=== PATIENT | female | born 1940 | race Caucasian/White ===

== ENCOUNTER → 2023-09-02 15:28 | Outpatient (REF) | payer MEDICARE, BC, SELFPAY | LOC: RCS 15:28 | PROVIDERS: ATTENDING PHYSICIAN Nuclear Medicine Nuclear Cardiology; FAMILY PHYSICIAN Family Medicine | DX: I10 Essential (primary) hypertension (principal) | CPT/HCPCS: 93306 ==

== ENCOUNTER 2023-11-01 15:10 | Emergency (ER) | payer MEDICARE, BC, SELFPAY ==
[2023-11-01 15:12] VITALS: BP 174/102
--- NOTE | 2023-11-01 15:51 | ED.GENMED ---
History of Present Illness
General
Chief Complaint: Musculo-Skeletal Complaint
Source: patient
Exam Limitations: none
Time Seen by Provider: 11/01/23 15:44
Nursing documentation reviewed up to this point in time: agreed with
History of Present Illness
History of Present Illness:
83 y/o female with a PMH of Parkinson's with balance issues presents to the emergency department today with concerns of left lower rib pain. Patient states that 2 days ago, she was dancing. Patient states that she has balance issues with her
Parkinson's and when she was dancing fast, she felt unsteady on her feet and when her partner grabbed her waist to support her, she felt sharp pain and felt a crunch. Patient said that her dance partner felt discomfort as well. Patient did not
fall, patient not hit her head, she denies any neck pain. She denies any other injuries. She does note pain with inspiration but denies any shortness of breath or other chest pain other than the rib pain. Patient Nuys any dizziness or
lightheadedness. Patient states that over the past few days, the pain has been getting worse. Patient has tried Tylenol without relief. Patient cannot take NSAIDs.
Past History
Past History
ED Past Medical History: GERD and HTN
ED Past Surgical History: Orthopedic and Urological
Social History
Tobacco: Non-smoker
Alcohol: None
Living: alone
Employment: Retired
Review of Systems
Review of Systems
All Other Systems: ROS reviewed and negative except as documented in HPI and ROS
Phy Exam
Physical Exam
Physical Exam:
General: Patient is well appearing and in no acute distress; non-toxic
Skin: Warm and dry, no rashes or lesions
Head: Normocephalic, atraumatic
Eyes: Sclera non-icteric. EOMs intact.
Cardiac: Regular rate. Tenderness palpation of the left lower chest wall, no palpable crepitus, no overlying ecchymosis.
Pulm: Normal respiratory effort, no wheezes, rales, rhonchi bilaterally
Neuro: CN II-XII intact, no focal neurologic deficits.
Psychiatric: Appropriate mood and affect.
Course
Orders/Labs/Results
Orders:
Orders
11/01/23 15:16
CR Ribs-left 3 Vw W/pa Chest Urgent
Comment:
Reason For Exam: pain
11/01/23 16:11
Oxycodone [Roxicodone] 5 mg PO NOW STA
11/01/23 16:13
Incentive Spirometry [Rx Incentive Spirometry] [RESP] Urgent
Frequency: q1h while awake
Vital Signs
Initial and Last Documented VS:
Initial Vital Signs
Temp Pulse Resp BP Pulse Ox
98.0 F 83 18 174/102 96
11/01/23 15:12 11/01/23 15:12 11/01/23 15:12 11/01/23 15:12 11/01/23 15:12
Last Documented Vital Signs
Temp Pulse Resp BP Pulse Ox
98.0 F 81 18 158/84 96
11/01/23 15:12 11/01/23 16:45 11/01/23 15:12 11/01/23 16:45 11/01/23 16:45
MDM/Problems Addressed
Differential Diagnosis Includes:
Differentials include rib fracture, rib contusion, costochondritis
MDM/Problems Addressed:
83-year-old female history of Parkinson's with balance issues presents emergency department today following her partner grabbing her waist. Patient has left lower chest wall pain. Patient states that she felt a crunch at the time. Patient states
that since injury pains been getting worse. She did had a x-ray here that showed a left acute nondisplaced fracture of the left lateral fifth rib but no evidence of pneumothorax or hemothorax. Discussed finding with patient, patient states that
she is not feeling relief with Tylenol and she has tolerated oxycodone in the past. Did send a few tablets of oxycodone to her pharmacy, discussed opioid-induced constipation. Encourage MiraLAX. Encouraged incentive spirometry. Return
precautions discussed. Patient stable for discharge
Chronic conditions affecting care:
Parkinson's, hypertension, GERD,
Acute Exacerbation and/or Progression of Chronic Illness:
n/a
*Pulse Oximetry
Patient hypoxic: no
*Critical Care Note
Total Time (30-74mins, 75-104mins- exclusive of procedures): Not Applicable
Data Reviewed
Review of Other/Old Records Reveals: Records (Reviewed ER physician documentation from 02/19/16)
Prescriptions/Medications Considered But Not Given:
n/a
Further Testing Considered But Not Given:
n/a
Patient Management
Escalation/DeEscalation of care consider admission/obs:
Admit not indicated, patient stable for discharge
ED Attending Note
-
Portions of this chart may have been created with voice recognition software.� Occasional wrong word or��sound alike� substitutions may have occurred due to the inherent limitations of voice recognition software.
Discharge Plan
Departure
Patient Disposition: Home (Routine Discharge)
Date of Disposition: 11/01/23
Time of Disposition: 16:28
Patient with high blood pressure during this ER visit?: Yes
Condition: Good
Discharge Problem:
Left rib fracture
Instructions: How to Use an Incentive Spirometer, Taking Opioids Safely, BLOOD PRESSURE, Rib Fracture
Prescriptions:
New
oxycodone 5 mg tablet
5 mg PO Q6H PRN (Reason: Pain) Qty: 8 0RF
No Action
amlodipine 5 MG tablet
10 mg PO DAILY
omeprazole 20 MG capsule,delayed release(DR/EC)
20 mg PO DAILY PRN (Reason: gerd)
acetaminophen [Tylenol Extra Strength] 500 MG tablet
1,000 mg PO Q4H PRN (Reason: pain)
cholecalciferol (vitamin D3) 2,000 UNITS tablet
2,000 unit PO DAILY
multivitamin with folic acid [Tab-A-Jagdish] 1 TABLET tablet
1 tab PO DAILY
pramipexole 1 mg Tablet
1 mg PO HS
carbidopa-levodopa 50-200 mg Tablet Extended Release
1 tab PO TID
turmeric
500 mg PO DAILY
albuterol sulfate 2.5 mg /3 mL (0.083 %) Solution For Nebulization
2.5 mg inhalation R Q4HPRN PRN (Reason: SOB, COUGH, WHEEZE) 7 Days 0RF
albuterol sulfate 2.5 mg /3 mL (0.083 %) Solution For Nebulization
2.5 mg inhalation R TID 7 Days Qty: 63 0RF
ciprofloxacin HCl 250 mg Tablet
250 mg PO BID Qty: 14 0RF
bisacodyl 10 mg Suppository
10 mg [place] DAILYPRN PRN (Reason: constipation) Qty: 7 0RF
docusate sodium 100 mg Capsule
100 mg PO BID Qty: 60 0RF
oxycodone 5 mg Tablet
2.5 mg PO Q4HPRN PRN (Reason: moderate pain) Qty: 10 0RF
Referrals:
Aamir Kaur MD [Active] - Call in 1-3 days for appt
Activity Restrictions/Additional Instructions:
For pain, you can take Tylenol. You can take two 325 mg tablets every 4-6 hours as needed for pain. Should you have breakthrough pain, you can take 1 oxycodone tablet. You can take 1 tablet every 6 hours as needed for pain. This has been sent to
your pharmacy. You had 1 dose today in the emergency department. The next time you can take this is in 6 hours.
Please use your incentive spirometer multiple times an hour while at home for the next week. This will heal on its own. Should you have persistent pain, trouble breathing, shortness of breath, pain in your chest, lightheadedness, dizziness, please
follow-up with your primary care provider, return emergency department. Please follow-up with orthopedics.
Interventions
Interventions:
*Risk Screen - Suicide Last Done: 11/01/23 15:12
*General Assessment Last Done: 11/01/23 15:12
*Neglect/Abuse Screening Last Done: 11/01/23 15:57
*ED COVID-19 Vaccine History Last Done: 11/01/23 15:12
*Nursing Disposition Last Done: 11/01/23 16:45
ED-Musculoskeletal Assessment Last Done: 11/01/23 15:57
Discharge Date and Time
Discharge Date/Time: 11/01/23 16:46
Print Language: TURKISH
[2023-11-01] MEDS: ROXICODONE 5 MG PO (16:18)
[2023-11-01 16:45] VITALS: BP 158/84
== END 2023-11-01 16:46 | disposition home or self-care (01) ==
LOC: EMR 15:10
PROVIDERS: EMERGENCY PHYSICIAN Student in an Organized Health Care Education/Training Program; FAMILY PHYSICIAN Family Medicine
DX: S22.32XA Fracture of one rib, left side, initial encounter for closed fracture (principal); X50.1XXA Overexertion from prolonged static or awkward postures, initial encounter; G20.A1 Parkinson's disease without dyskinesia, without mention of fluctuations
CPT/HCPCS: 99283; 71101

== ENCOUNTER 2023-11-14 13:32 | Emergency (ER) | payer MEDICARE, BC, SELFPAY ==
[2023-11-14 13:33] VITALS: BP 174/107
--- NOTE | 2023-11-14 14:26 | ED.GENMED ---
History of Present Illness
General
Chief Complaint: Musculo-Skeletal Complaint
Source: patient
Time Seen by Provider: 11/14/23 13:58
History of Present Illness
History of Present Illness:
83-year-old female presenting to the emergency department for evaluation after she believes she may have aggravated or reinjured her left lateral rib area when she opened up a shower door causing it to hit into the left lateral rib where she had a
recently fractured fifth rib. Patient states that the pain was somewhat improved over the last few days but that since she hit the area again this morning she has now had more pain. Denies any difficulty breathing but does state it hurts more when
she takes a deep breath. No other injuries or concerns.
Past History
Past History
ED Past Medical History: GERD and HTN
ED Past Surgical History: Orthopedic and Urological
Social History
Tobacco: Non-smoker
Alcohol: None
Drug: None
Personal: Single
Living: alone
Employment: Retired
Review of Systems
Review of Systems
All Other Systems: ROS reviewed and negative except as documented in HPI and ROS
Phy Exam
Physical Exam
Physical Exam:
GENERAL: Alert , in no apparent distress at rest but uncomfortable with movement
EYE: clear conjunctiva b/l
HEAD: NCAT
ENT: mmm.
CARDIAC: Regular rate and rhythm .
LUNGS: Clear breath sounds bilaterally, no acute respiratory distress, no wheezes/rales/rhonchi
CHEST WALL: mild tenderness inferolaterally to left breast around the 5th/6th rib
ABDOMEN: Soft, without focal tenderness, no r/g, no cvat
NEUROLOGICAL: Alert and oriented
SKIN: Warm and dry, skin intact.
MUSCULOSKELETAL: well perfused.
PSYCH: Normal and appropriate interaction.
Scores
Heart Failure Risk
Heart Failure Risk Score: Not Applicable
Heart Score for Chest Pain Patients
STEMI patient?: Not applicable
Withdrawal Assessment of Alcohol
Withdrawal Assessment Completed?: Not applicable
Course
Orders/Labs/Results
Orders:
Orders
11/14/23 14:03
CR Ribs-left 3 Vw W/pa Chest Urgent
Comment:
Reason For Exam: pain, known recent rib fx
11/14/23 14:30
Oxycodone [Roxicodone] 5 mg PO NOW STA
Vital Signs
Initial and Last Documented VS:
Initial Vital Signs
Temp Pulse Resp BP Pulse Ox
97.7 F 98 16 174/107 96
11/14/23 13:33 11/14/23 13:33 11/14/23 13:33 11/14/23 13:33 11/14/23 13:33
Last Documented Vital Signs
Temp Pulse Resp BP Pulse Ox
97.7 F 71 16 157/96 95
11/14/23 13:33 11/14/23 15:28 11/14/23 15:28 11/14/23 15:28 11/14/23 15:28
MDM/Problems Addressed
Differential Diagnosis Includes:
re-aggravation of rib fracture, contusion, ptx
MDM/Problems Addressed:
83-year-old female presenting back to the emergency department for evaluation after she reinjured her left lateral thorax, recently here about 2 weeks ago for a left fifth rib fracture. Patient in no acute distress but does appear uncomfortable
with movement. Patient requesting repeat imaging, will obtain rib series. Patient did take some Tylenol prior to arrival with no relief. Patient notes that she had relief with oxycodone when she took this at home so we will give her a dose of
this as well.
*Radiology
Radiology exam reviewed: radiology read reviewed
*Pulse Oximetry
Patient hypoxic: no
*Critical Care Note
Total Time (30-74mins, 75-104mins- exclusive of procedures): Not Applicable
Data Reviewed
Review of Other/Old Records Reveals: Radiology Studies
Patient Management
Escalation/DeEscalation of care consider admission/obs:
No new fracture or complication on patient's x-ray. Will provide patient with short-term oxycodone to use as needed. Follow-up with primary care provider. Otherwise stable for discharge home
ED Attending Note
-
Portions of this chart may have been created with voice recognition software.� Occasional wrong word or��sound alike� substitutions may have occurred due to the inherent limitations of voice recognition software.
Discharge Plan
Departure
Patient Disposition: Home (Routine Discharge)
Date of Disposition: 11/14/23
Time of Disposition: 15:22
Patient with high blood pressure during this ER visit?: No
Discharge Problem:
Left rib fracture
Instructions: Rib Fracture
Prescriptions:
New
oxycodone 5 mg tablet
5 mg PO BID PRN (Reason: Pain) Qty: 5 0RF
No Action
amlodipine 5 MG tablet
10 mg PO DAILY
omeprazole 20 MG capsule,delayed release(DR/EC)
20 mg PO DAILY PRN (Reason: gerd)
acetaminophen [Tylenol Extra Strength] 500 MG tablet
1,000 mg PO Q4H PRN (Reason: pain)
cholecalciferol (vitamin D3) 2,000 UNITS tablet
2,000 unit PO DAILY
multivitamin with folic acid [Tab-A-Jagdish] 1 TABLET tablet
1 tab PO DAILY
pramipexole 1 mg Tablet
1 mg PO HS
carbidopa-levodopa 50-200 mg Tablet Extended Release
1 tab PO TID
turmeric
500 mg PO DAILY
albuterol sulfate 2.5 mg /3 mL (0.083 %) Solution For Nebulization
2.5 mg inhalation R Q4HPRN PRN (Reason: SOB, COUGH, WHEEZE) 7 Days 0RF
albuterol sulfate 2.5 mg /3 mL (0.083 %) Solution For Nebulization
2.5 mg inhalation R TID 7 Days Qty: 63 0RF
ciprofloxacin HCl 250 mg Tablet
250 mg PO BID Qty: 14 0RF
bisacodyl 10 mg Suppository
10 mg [place] DAILYPRN PRN (Reason: constipation) Qty: 7 0RF
docusate sodium 100 mg Capsule
100 mg PO BID Qty: 60 0RF
oxycodone 5 mg Tablet
2.5 mg PO Q4HPRN PRN (Reason: moderate pain) Qty: 10 0RF
oxycodone 5 mg tablet
5 mg PO Q6H PRN (Reason: Pain) Qty: 8 0RF
Referrals:
Evita Sales MD [Family Provider] -
Interventions
Interventions:
*Risk Screen - Suicide Last Done: 11/14/23 13:36
*General Assessment Last Done: 11/14/23 14:24
*Neglect/Abuse Screening Last Done: 11/14/23 13:36
ED- Fall Risk Assessment Last Done: 11/14/23 15:29
*ED COVID-19 Vaccine History Last Done: 11/14/23 14:24
*Nursing Disposition Last Done: 11/14/23 15:29
ED-Musculoskeletal Assessment Last Done: 11/14/23 14:23
Discharge Date and Time
Discharge Date/Time: 11/14/23 15:44
Print Language: TURKMEN
[2023-11-14] MEDS: ROXICODONE 5 MG PO (14:34)
[2023-11-14 15:28] VITALS: BP 157/96
== END 2023-11-14 15:44 | disposition home or self-care (01) ==
LOC: EMR 13:32
PROVIDERS: EMERGENCY PHYSICIAN Emergency Medicine; FAMILY PHYSICIAN Family Medicine
DX: S22.32XA Fracture of one rib, left side, initial encounter for closed fracture (principal); W22.8XXA Striking against or struck by other objects, initial encounter; I10 Essential (primary) hypertension; K21.9 Gastro-esophageal reflux disease without esophagitis; Z88.0 Allergy status to penicillin
CPT/HCPCS: 99283; 71101

== ENCOUNTER → 2023-11-21 13:12 | Outpatient (REF) | payer MEDICARE, BC, SELFPAY | LOC: RAD 13:12 | PROVIDERS: ATTENDING PHYSICIAN Family Medicine | DX: R07.81 Pleurodynia (principal) | CPT/HCPCS: 71101 ==

== ENCOUNTER 2024-03-11 13:54 | Emergency (ER) | payer MEDICARE, BC, SELFPAY ==
[2024-03-11 13:59] VITALS: BP 155/92
[2024-03-11] MEDS: TYLENOL 650 MG PO (15:30)
--- NOTE | 2024-03-11 15:52 | ED.GENMED ---
History of Present Illness
General
Chief Complaint: Musculo-Skeletal Complaint
Source: patient
Exam Limitations: none
Time Seen by Provider: 03/11/24 14:42
Nursing documentation reviewed up to this point in time: agreed with
History of Present Illness
History of Present Illness:
Patient is a 84-year-old female with history of Parkinson's, hypertension presenting to the emergency room with pain in her left elbow for the past 2 months. Patient reports gradual onset pain on the inside of her left elbow which is worse with
movement and palpation. No history of falls preceding onset of elbow pain. Patient denies any numbness/tingling in left arm. No fevers, chills. Patient denies any redness or warmth of left elbow.
Patient denies any acute worsening in symptoms just felt that symptoms been ongoing for long enough and she should have this evaluated.
Patient does note that she does carry heavy object at the stairs sometimes.
Past History
Past History
ED Past Medical History: GERD and HTN
ED Past Surgical History: Orthopedic and Urological
Social History
Tobacco: Non-smoker
Alcohol: None
Drug: None
Personal: Single
Living: alone
Employment: Retired
Review of Systems
Review of Systems
Allergies reviewed?: Yes
All Other Systems: ROS reviewed and negative except as documented in HPI and ROS
Phy Exam
Physical Exam
Physical Exam:
Vitals: Hypertensive, otherwise vital signs are stable. Afebrile
General: Patient is well appearing, no acute distress
Skin: Warm and dry, no rashes or lesions
Head: Normocephalic, atraumatic
Throat: Protecting airway
Neck: Normal ROM, no cervical spine tenderness
Cardiac: Regular rate
Pulm: No apparent respiratory distress
Abdomen: Nondistended
Extremities: Point tenderness over left medial epicondyles. No overlying erythema, warmth. No edema noted. No bursitis. No obvious deformities of left elbow or LUE. Full active range of motion to left elbow, left wrist, and left shoulder.
Palpable left radial pulse. Patient fully intact in LUE. Cap refill WNL
Neuro: Grossly intact
Psychiatric: Normal affect.
Course
Orders/Labs/Results
Orders:
Orders
03/11/24 14:02
Elbow, Left, 2 View [CR Elbow - Left Min 2 View] Urgent
Comment:
Reason For Exam: pain
03/11/24 15:23
Acetaminophen [Tylenol] 650 mg PO NOW STA
Vital Signs
Initial and Last Documented VS:
Initial Vital Signs
Temp Pulse Resp BP Pulse Ox
97.8 F 90 18 155/92 97
03/11/24 13:59 03/11/24 13:59 03/11/24 13:59 03/11/24 13:59 03/11/24 13:59
Last Documented Vital Signs
Temp Pulse Resp BP Pulse Ox
97.8 F 90 18 155/92 97
03/11/24 13:59 03/11/24 13:59 03/11/24 13:59 03/11/24 13:59 03/11/24 13:59
MDM/Problems Addressed
Differential Diagnosis Includes:
Not limited to: Olecranon bursitis, medial epicondylitis, lateral epicondylitis, elbow sprain, elbow fracture, etc.
MDM/Problems Addressed:
84-year-old female presenting with atraumatic left elbow pain for the past few months. No recent falls or trauma. No fevers or other infectious symptoms. Patient hypertensive on arrival, otherwise stable vital signs. On exam�patient is point
tender at left medial epicondylitis without any overlying erythema or well-visualized. No bursitis noted. Patient has excellent range of motion in left elbow. LUE neurovascular intact. An x-ray was performed in triage which shows no evidence of
fracture of left elbow. Given point tenderness over medial epicondyle�most consistent with medial epicondylitis, possibly from carrying heavy objects upstairs. Do not suspect infectious process. Ultimately�patient will need to follow-up with
orthopedics for further evaluation/management. However patient elbow sling -however well given mobility difficulty baseline secondary to Parkinson's. Advised Tylenol, ice. Patient will follow with orthopedics�referral given. Case discussed with
physician.
Chronic conditions affecting care:
Hypertension
Acute Exacerbation and/or Progression of Chronic Illness:
Acutely hypertensive
*Radiology
Radiology exam reviewed: preliminary read by ED provider (Left elbow x-ray reviewed by me-no evidence of acute fracture) and radiology read reviewed
*Pulse Oximetry
Patient hypoxic: no
*EKG
Interpreted by ED Provider?: NA
*Urologic Nurse Interpretation
Rate: Urologic Nurse- N/A
*Critical Care Note
Total Time (30-74mins, 75-104mins- exclusive of procedures): Not Applicable
ED Attending Note
-
Portions of this chart may have been created with voice recognition software.� Occasional wrong word or��sound alike� substitutions may have occurred due to the inherent limitations of voice recognition software.
Discharge Plan
Departure
Patient Disposition: Home (Routine Discharge)
Date of Disposition: 03/11/24
Time of Disposition: 16:25
Patient with high blood pressure during this ER visit?: Yes
Condition: Good
Covid-19: Not Applicable
Discharge Problem:
Medial epicondylitis of left elbow
Instructions: Medial Epicondylitis (DC), Overuse Injuries (DC), BLOOD PRESSURE
Prescriptions:
No Action
amlodipine 5 MG tablet
10 mg PO DAILY
omeprazole 20 MG capsule,delayed release(DR/EC)
20 mg PO DAILY PRN (Reason: gerd)
acetaminophen [Tylenol Extra Strength] 500 MG tablet
1,000 mg PO Q4H PRN (Reason: pain)
cholecalciferol (vitamin D3) 2,000 UNITS tablet
2,000 unit PO DAILY
multivitamin with folic acid [Tab-A-Jagdish] 1 TABLET tablet
1 tab PO DAILY
pramipexole 1 mg Tablet
1 mg PO HS
carbidopa-levodopa 50-200 mg Tablet Extended Release
1 tab PO TID
turmeric
500 mg PO DAILY
albuterol sulfate 2.5 mg /3 mL (0.083 %) Solution For Nebulization
2.5 mg inhalation R Q4HPRN PRN (Reason: SOB, COUGH, WHEEZE) 7 Days 0RF
albuterol sulfate 2.5 mg /3 mL (0.083 %) Solution For Nebulization
2.5 mg inhalation R TID 7 Days Qty: 63 0RF
ciprofloxacin HCl 250 mg Tablet
250 mg PO BID Qty: 14 0RF
bisacodyl 10 mg Suppository
10 mg [place] DAILYPRN PRN (Reason: constipation) Qty: 7 0RF
docusate sodium 100 mg Capsule
100 mg PO BID Qty: 60 0RF
oxycodone 5 mg Tablet
2.5 mg PO Q4HPRN PRN (Reason: moderate pain) Qty: 10 0RF
oxycodone 5 mg tablet
5 mg PO Q6H PRN (Reason: Pain) Qty: 8 0RF
oxycodone 5 mg tablet
5 mg PO BID PRN (Reason: Pain) Qty: 5 0RF
Referrals:
Evita Sales MD [Family Provider] -
Ainsley Jolly I., [Active] - Next open appointment
Activity Restrictions/Additional Instructions:
Return to the emergency department with any intractable pain of left elbow, numbness/tingling in left arm/hand, fevers or other signs of infection including significant redness, warmth, or swelling left elbow, or any other concerns
-As discussed�your x-ray performed in the emergency department showed no evidence of fracture. I suspect you likely have medial epicondylitis.
-Patient ice and elevate your left arm/elbow when able. Take Tylenol as needed for discomfort.
-You will need to follow-up with orthopedics for further evaluation/management. This may require further imaging. The contact information for Dr. Jolly has been provided for you above. You can also follow-up with the orthopedic you have seen
prior at [place]
Monitor your symptoms closely and return to the emergency department any acute worsening/new symptoms or any other concern
Interventions
Interventions:
*Risk Screen - Suicide Last Done: 03/11/24 13:59
*General Assessment Last Done: 03/11/24 13:59
*Neglect/Abuse Screening Last Done: 03/11/24 13:59
*ED COVID-19 Vaccine History Last Done: 03/11/24 15:32
*Nursing Disposition Last Done: 03/11/24 16:42
ED-Musculoskeletal Assessment Last Done: 03/11/24 15:32
Discharge Date and Time
Discharge Date/Time: 03/11/24 16:43
Print Language: HEBREW
== END 2024-03-11 16:43 | disposition home or self-care (01) ==
LOC: EMR 13:54
PROVIDERS: EMERGENCY PHYSICIAN Student in an Organized Health Care Education/Training Program; FAMILY PHYSICIAN Family Medicine
DX: M77.02 Medial epicondylitis, left elbow (principal); G20.A1 Parkinson's disease without dyskinesia, without mention of fluctuations; I10 Essential (primary) hypertension; K21.9 Gastro-esophageal reflux disease without esophagitis
CPT/HCPCS: 99283; 73070

== ENCOUNTER 2024-06-03 11:24 | Emergency (ER) | payer MEDICARE, BC, SELFPAY ==
[2024-06-03 11:28] VITALS: BP 144/90
--- NOTE | 2024-06-03 11:51 | ED.MUSCINJ ---
HPI-Injury
General
Chief Complaint: Fall
Source: patient
Exam Limitations: none
Time Seen by Provider: 06/03/24 11:41
History of Present Illness-Injury
Initial Injury comments:
84-year-old female not anticoagulated presents complaining of right rib pain starting 2 days ago. She fell onto her side. She denies head strike or neck pain. She denies any more short of breath than usual. However it does hurt to breathe.
Hurts to move as well. She typically uses a cane or a walker to ambulate. She lives independently.
Past History
Past History
ED Past Medical History: GERD and HTN
ED Past Surgical History: Orthopedic and Urological
Social History
Tobacco: Non-smoker
Alcohol: None
Drug: None
Personal: Single
Living: alone
Employment: Retired
Phy Exam
Physical Exam
Physical Exam:
General: Well-appearing female no acute respiratory distress
HEENT: Normocephalic atraumatic
Heart: Regular rate and rhythm
Lungs: Breath sounds heard all will no wheeze or rales
Musculoskeletal exam: Tenderness noted to the right lateral chest wall without overlying ecchymosis or step-off
Abdomen is soft and nontender
Injury Course
Orders/Labs/Results
Orders:
Orders
06/03/24 11:29
Ribs, Right 3 View W/PA Chest [CR Ribs-right 3 Vw W/pa Chest*] Urgent
Comment:
Reason For Exam: fall 2 days ago
MDM/Problems Addressed
Differential Diagnosis Includes:
Right rib pain 2 days following a fall. Consider contusion versus rib fracture versus pneumothorax
Right rib series pending
*Critical Care Note
Total Time (30-74mins, 75-104mins- exclusive of procedures): Not Applicable
Update Note
Update Note:
X-ray right ribs negative for fracture or pneumothorax. Tylenol is not helping her pain. She cannot do NSAIDs. She tried Lidoderm patches without relief. Will prescribe a short supply of pain medicine for her. Suspect chest wall contusion.
Stable for discharge.
ED Attending Note
-
Portions of this chart may have been created with voice recognition software.� Occasional wrong word or��sound alike� substitutions may have occurred due to the inherent limitations of voice recognition software.
Discharge Plan
Departure
Patient Disposition: Home (Routine Discharge)
Date of Disposition: 06/03/24
Time of Disposition: 12:50
Patient with high blood pressure during this ER visit?: No
Discharge Problem:
Chest wall contusion
Instructions: Contusion (DC)
Prescriptions:
New
oxycodone 5 mg tablet
5 mg PO BID PRN (Reason: Pain) Qty: 10 0RF
No Action
amlodipine 5 MG tablet
10 mg PO DAILY
omeprazole 20 MG capsule,delayed release(DR/EC)
20 mg PO DAILY PRN (Reason: gerd)
acetaminophen [Tylenol Extra Strength] 500 MG tablet
1,000 mg PO Q4H PRN (Reason: pain)
cholecalciferol (vitamin D3) 2,000 UNITS tablet
2,000 unit PO DAILY
multivitamin with folic acid [Tab-A-Jagdish] 1 TABLET tablet
1 tab PO DAILY
pramipexole 1 mg Tablet
1 mg PO HS
carbidopa-levodopa 50-200 mg Tablet Extended Release
1 tab PO TID
turmeric
500 mg PO DAILY
albuterol sulfate 2.5 mg /3 mL (0.083 %) Solution For Nebulization
2.5 mg inhalation R Q4HPRN PRN (Reason: SOB, COUGH, WHEEZE) 7 Days 0RF
albuterol sulfate 2.5 mg /3 mL (0.083 %) Solution For Nebulization
2.5 mg inhalation R TID 7 Days Qty: 63 0RF
ciprofloxacin HCl 250 mg Tablet
250 mg PO BID Qty: 14 0RF
bisacodyl 10 mg Suppository
10 mg [place] DAILYPRN PRN (Reason: constipation) Qty: 7 0RF
docusate sodium 100 mg Capsule
100 mg PO BID Qty: 60 0RF
oxycodone 5 mg Tablet
2.5 mg PO Q4HPRN PRN (Reason: moderate pain) Qty: 10 0RF
oxycodone 5 mg tablet
5 mg PO Q6H PRN (Reason: Pain) Qty: 8 0RF
oxycodone 5 mg tablet
5 mg PO BID PRN (Reason: Pain) Qty: 5 0RF
Referrals:
Evita Sales MD [Family Provider] -
Activity Restrictions/Additional Instructions:
Avoid heavy lifting or twisting. Use pain medicine as needed for severe pain. Return if worse otherwise follow-up with your doctor
Interventions
Interventions:
*Risk Screen - Suicide Last Done: 06/03/24 11:29
*General Assessment Last Done: 06/03/24 11:29
*Neglect/Abuse Screening Last Done: 06/03/24 11:29
*ED- Fall Risk Assessment Last Done: 06/03/24 11:44
*ED COVID-19 Vaccine History Last Done: 06/03/24 11:29
ED-Musculoskeletal Assessment Last Done: 06/03/24 11:44
ED- Neurological Assessment Last Done: 06/03/24 11:44
ED-Skin Assessment Last Done: 06/03/24 11:44
Discharge Date and Time
Print Language: SAMI
== END 2024-06-03 13:15 | disposition home or self-care (01) ==
LOC: EMR 11:24
PROVIDERS: EMERGENCY PHYSICIAN Student in an Organized Health Care Education/Training Program; FAMILY PHYSICIAN Family Medicine
DX: S20.219A Contusion of unspecified front wall of thorax, initial encounter (principal); W19.XXXA Unspecified fall, initial encounter; R07.81 Pleurodynia; K21.9 Gastro-esophageal reflux disease without esophagitis; I10 Essential (primary) hypertension
CPT/HCPCS: 99283; 71101

== ENCOUNTER 2024-06-29 09:27 | Emergency (ER) | payer MEDICARE, BC, SELFPAY ==
[2024-06-29 09:39] VITALS: BP 149/81
[2024-06-29] MEDS: LIDOCAINE 4% PATCH 1 PATCH TOPICAL (10:07)
[2024-06-29] MEDS: ULTRAM 50 MG PO (11:23)
[2024-06-29] MEDS: TYLENOL 650 MG PO (11:23)
[2024-06-29 12:00] VITALS: BP 132/68
--- NOTE | 2024-06-29 12:03 | ED.GENMED ---
History of Present Illness
General
Chief Complaint: Fall
Time Seen by Provider: 06/29/24 09:47
History of Present Illness
History of Present Illness:
84-year-old female presents to the emergency department for evaluation of right chest wall pain after falling into the arm of her couch last night. She did not strike her head and did not fall to the ground. She has pain with deep breathing or and
moving. Has not taken any analgesics this morning.
Past History
Past History
ED Past Medical History: GERD and HTN
ED Past Surgical History: Orthopedic and Urological
Social History
Tobacco: Non-smoker
Alcohol: None
Drug: None
Personal: Single
Living: alone
Employment: Retired
Review of Systems
Review of Systems
Allergies reviewed?: Yes
All Other Systems: ROS reviewed and negative except as documented in HPI and ROS
Phy Exam
Physical Exam
Physical Exam:
GEN: Well appearing, NAD, WDWN
HEENT: Oral mucosa moist, no scleral icterus
Cardiac: Regular rate
Lung: No respiratory distress, no tachypnea, lungs clear to auscultation with no diminished breath sounds
Chest: Diffuse tenderness to the right lateral chest wall in the midaxillary line inferior to the breast with no palpable deformity or subcutaneous emphysema
MSK: No gross deformity or injuries
Skin: Good color, no pallor or jaundice, no rashes
Neuro: AO x3, moves all extremities freely
Psych: Calm, cooperative
Course
Orders/Labs/Results
Orders:
Orders
06/29/24 09:55
CT Chest W/o Iv Contrast Urgent
Comment:
Reason For Exam: fall R chest wall trauma
Lidocaine [Lidocaine 4% Patch] 1 patch TOPICAL DAILY ONE
Apply Lidocaine patch(s) to:: R chest
06/29/24 10:53
Acetaminophen [Tylenol] 650 mg PO NOW STA
Tramadol HCl [Ultram] 50 mg PO NOW STA
Vital Signs
Initial and Last Documented VS:
Initial Vital Signs
Temp Pulse Resp BP Pulse Ox
98.4 F 89 18 149/81 96
06/29/24 09:39 06/29/24 09:39 06/29/24 09:39 06/29/24 09:39 06/29/24 09:39
Last Documented Vital Signs
Temp Pulse Resp BP Pulse Ox
98.4 F 78 16 132/68 97
06/29/24 09:39 06/29/24 12:00 06/29/24 12:00 06/29/24 12:00 06/29/24 12:00
MDM/Problems Addressed
MDM/Problems Addressed:
Imaging reveals 1 definitive rib fracture with 3 additional questionable fractures versus bone contusions. Patient is comfortable with discharge home, she feels as though she can manage with analgesics. She is in an independent living and does not
wish to stay in the hospital at this time. She is clinically stable with no sign of pulmonary contusion and normal respiratory function. Will be provided with an incentive spirometer and educated on appropriate use
*Critical Care Note
Total Time (30-74mins, 75-104mins- exclusive of procedures): Not Applicable
ED Attending Note
-
Portions of this chart may have been created with voice recognition software.� Occasional wrong word or��sound alike� substitutions may have occurred due to the inherent limitations of voice recognition software.
Discharge Plan
Departure
Patient Disposition: Home (Routine Discharge)
Date of Disposition: 06/29/24
Time of Disposition: 12:05
Patient with high blood pressure during this ER visit?: No
Discharge Problem:
Closed rib fracture
Instructions: How to use an incentive spirometer, Rib Fracture
Prescriptions:
New
tramadol 50 mg tablet
50 mg PO Q8H PRN (Reason: Pain) Qty: 10 0RF
No Action
amlodipine 5 MG tablet
10 mg PO DAILY
omeprazole 20 MG capsule,delayed release(DR/EC)
20 mg PO DAILY PRN (Reason: gerd)
acetaminophen [Tylenol Extra Strength] 500 MG tablet
1,000 mg PO Q4H PRN (Reason: pain)
cholecalciferol (vitamin D3) 2,000 UNITS tablet
2,000 unit PO DAILY
multivitamin with folic acid [Tab-A-Jagdish] 1 TABLET tablet
1 tab PO DAILY
pramipexole 1 mg Tablet
1 mg PO HS
carbidopa-levodopa 50-200 mg Tablet Extended Release
1 tab PO TID
turmeric
500 mg PO DAILY
albuterol sulfate 2.5 mg /3 mL (0.083 %) Solution For Nebulization
2.5 mg inhalation R Q4HPRN PRN (Reason: SOB, COUGH, WHEEZE) 7 Days 0RF
albuterol sulfate 2.5 mg /3 mL (0.083 %) Solution For Nebulization
2.5 mg inhalation R TID 7 Days Qty: 63 0RF
ciprofloxacin HCl 250 mg Tablet
250 mg PO BID Qty: 14 0RF
bisacodyl 10 mg Suppository
10 mg [place] DAILYPRN PRN (Reason: constipation) Qty: 7 0RF
docusate sodium 100 mg Capsule
100 mg PO BID Qty: 60 0RF
oxycodone 5 mg Tablet
2.5 mg PO Q4HPRN PRN (Reason: moderate pain) Qty: 10 0RF
oxycodone 5 mg tablet
5 mg PO Q6H PRN (Reason: Pain) Qty: 8 0RF
oxycodone 5 mg tablet
5 mg PO BID PRN (Reason: Pain) Qty: 5 0RF
oxycodone 5 mg tablet
5 mg PO BID PRN (Reason: Pain) Qty: 10 0RF
Referrals:
Evita Sales MD [Family Provider] -
Interventions
Interventions:
*Risk Screen - Suicide Last Done: 06/29/24 09:39
*General Assessment Last Done: 06/29/24 09:39
*Neglect/Abuse Screening Last Done: 06/29/24 09:39
*ED- Fall Risk Assessment Last Done: 06/29/24 10:02
*ED COVID-19 Vaccine History Last Done: 06/29/24 10:02
ED-Musculoskeletal Assessment Last Done: 06/29/24 10:02
ED- Neurological Assessment Last Done: 06/29/24 10:02
ED-Skin Assessment Last Done: 06/29/24 10:02
Discharge Date and Time
Discharge Date/Time: 06/29/24 12:30
Print Language: BULGARIAN
== END 2024-06-29 12:30 | disposition home or self-care (01) ==
LOC: EMR 09:27
PROVIDERS: EMERGENCY PHYSICIAN Emergency Medicine; FAMILY PHYSICIAN Family Medicine
DX: S22.31XA Fracture of one rib, right side, initial encounter for closed fracture (principal); W19.XXXA Unspecified fall, initial encounter; I10 Essential (primary) hypertension
CPT/HCPCS: 99283; 71250

== ENCOUNTER → 2024-09-04 08:39 | Outpatient (REF) | payer MEDICARE, BC, SELFPAY ==
[2024-09-04 09:45] LABS: Hematocrit 39.7 % (37.0-47.0); Hemoglobin 12.7 g/dL (12.0-16.0); Mean Corp Hgb Conc. 32.0 g/dL (33.0-37.0); Mean Corpuscular Volume 90.0 fL (81.0-99.0); Nucleated Red Blood Cells % 0 %; Platelet Count 214 10^3/uL (130-400); Red Cell Dist. Width 13.7 % (11.5-14.5)
[2024-09-04 10:24] LABS: Vitamin D, 25-OH*** 13.6 ng/mL (30-80)
[2024-09-04 10:29] LABS: ALT (SGPT) < 10 U/L (0-35); AST (SGOT) 17 U/L (14-36); Albumin 4.5 g/dl (3.5-5.0); Alkaline Phosphatase 63 U/L (38-126); Blood Urea Nitrogen 19 mg/dl (7-17); Calcium 9.4 mg/dl (8.4-10.2); Carbon Dioxide 28 mmol/L (22-30); Chloride 103 mmol/L (98-107); Glucose 92 mg/dl (70-99); Potassium 4.4 mmol/L (3.5-5.1); Sodium 138 mmol/L (135-145); Total Protein 7.3 g/dl (6.3-8.2); Very Low Density Lipoprotein 15 mg/dl (0-30); eGFR > 60.00
[2024-09-04 10:38] LABS: TSH 0.89 uIU/ml (0.47-4.68)
[2024-09-04 10:39] LABS: HDL Cholesterol 120 mg/dl; LDL Cholesterol, Calculated 79 mg/dl
== END ==
LOC: REG 08:39
PROVIDERS: ATTENDING PHYSICIAN Family Medicine
DX: I10 Essential (primary) hypertension (principal); Z79.899 Other long term (current) drug therapy
CPT/HCPCS: 36415; 80053; 80061; 82306; 84443; 85025

== ENCOUNTER → 2024-10-30 15:16 | Outpatient (REF) | payer MEDICARE, BC, SELFPAY ==
[2024-10-30 17:38] LABS: Blood Urea Nitrogen 24 mg/dl (7-17); Calcium 9.4 mg/dl (8.4-10.2); Carbon Dioxide 28 mmol/L (22-30); Chloride 103 mmol/L (98-107); Glucose 109 mg/dl (70-99); Potassium 4.3 mmol/L (3.5-5.1); Sodium 138 mmol/L (135-145); eGFR 55.90
[2024-10-30 18:25] LABS: Vitamin B12 286 pg/ml (239-931)
== END ==
LOC: REG 15:16
PROVIDERS: ATTENDING PHYSICIAN Family Medicine
DX: I10 Essential (primary) hypertension (principal); Z79.899 Other long term (current) drug therapy
CPT/HCPCS: 36415; 80048; 82607

== ENCOUNTER 2025-01-08 17:02 | Emergency (ER) | payer MEDICARE, BC, SELFPAY ==
[2025-01-08 17:05] VITALS: BP 103/71
[2025-01-08] MEDS: NORCO 5/325 1 TABLET PO (20:13)
[2025-01-08 20:19] VITALS: BP 115/74
--- NOTE | 2025-01-08 20:49 | ED.MUSCINJ ---
HPI-Injury
General
Chief Complaint: Fall
Source: patient
Exam Limitations: none
Time Seen by Provider: 01/08/25 19:38
History of Present Illness-Injury
Initial Injury comments:
84-year-old female presents after mechanical fall. Her walker got caught and she fell forward. She bumped her wrist and landed on her left arm and also hit her right knee. She did not hit her head. She is not anticoagulated. This happened
yesterday. She has been ambulatory since the fall. No other complaints
Past History
Past History
ED Past Medical History: GERD and HTN
ED Past Surgical History: Orthopedic and Urological
Social History
Tobacco: Non-smoker
Alcohol: None
Drug: None
Personal: Single
Living: alone
Employment: Retired
Phy Exam
Physical Exam
Physical Exam:
General: Well-appearing female no acute respiratory distress
HEENT: Normal cephalic atraumatic
Musculoskeletal exam: The spine is nontender over the midline left shoulder is mildly diffusely tender. The left elbow is tender. The right wrist is swollen and ecchymotic and tender the right knee is tender over the anterior medial knee with
overlying ecchymosis.
Injury Course
Orders/Labs/Results
Orders:
Orders
01/08/25 17:10
CR Elbow - Left Min 3 Views Urgent
Comment:
Reason For Exam: fall
CR Knee- Right 4 Or More View* Urgent
Comment:
Reason For Exam: fall
CR Shoulder - Left Min 2 View* Urgent
Comment:
Reason For Exam: fall
CR Wrist - Right Min 3 Views Urgent
Comment:
Reason For Exam: fall
01/08/25 20:07
Sling Left-Treatment ONCE
Hydrocodone 5/APAP 325 [[place] 5/325] 1 tablet PO NOW STA
MDM/Problems Addressed
Differential Diagnosis Includes:
Patient with mechanical fall multiple areas of discomfort. X-rays of the right knee right wrist left shoulder and left elbow were ordered and I have personally visualized. There is a intra-articular effusion in the left elbow but no obvious
fracture question possible occult radial head fracture. Left shoulder right knee and right wrist all are negative for acute finding. Sling applied. Recommended ice to the sore spots. Stable for discharge with orthopedic follow-up
*Pulse Oximetry
SaO2: 95
Oxygen Mode of Delivery: Room air
Patient hypoxic: no
*Critical Care Note
Total Time (30-74mins, 75-104mins- exclusive of procedures): Not Applicable
ED Attending Note
-
Portions of this chart may have been created with voice recognition software.� Occasional wrong word or��sound alike� substitutions may have occurred due to the inherent limitations of voice recognition software.
Discharge Plan
Departure
Patient Disposition: Home (Routine Discharge)
Date of Disposition: 01/08/25
Time of Disposition: 20:52
Patient with high blood pressure during this ER visit?: No
Discharge Problem:
possible elbow fracture
Instructions: Preventing falls in adults
Prescriptions:
New
hydrocodone-acetaminophen 5-325 mg tablet
1 tab PO TID PRN (Reason: Pain) Qty: 10 0RF
No Action
amlodipine 5 MG tablet
10 mg PO DAILY
omeprazole 20 MG capsule,delayed release(DR/EC)
20 mg PO DAILY PRN (Reason: gerd)
acetaminophen [Tylenol Extra Strength] 500 MG tablet
1,000 mg PO Q4H PRN (Reason: pain)
cholecalciferol (vitamin D3) 2,000 UNITS tablet
2,000 unit PO DAILY
multivitamin with folic acid [Tab-A-Jagdish] 1 TABLET tablet
1 tab PO DAILY
pramipexole 1 mg Tablet
1 mg PO HS
carbidopa-levodopa 50-200 mg Tablet Extended Release
1 tab PO TID
turmeric
500 mg PO DAILY
albuterol sulfate 2.5 mg /3 mL (0.083 %) Solution For Nebulization
2.5 mg inhalation R Q4HPRN PRN (Reason: SOB, COUGH, WHEEZE) 7 Days 0RF
albuterol sulfate 2.5 mg /3 mL (0.083 %) Solution For Nebulization
2.5 mg inhalation R TID 7 Days Qty: 63 0RF
ciprofloxacin HCl 250 mg Tablet
250 mg PO BID Qty: 14 0RF
bisacodyl 10 mg Suppository
10 mg [place] DAILYPRN PRN (Reason: constipation) Qty: 7 0RF
docusate sodium 100 mg Capsule
100 mg PO BID Qty: 60 0RF
oxycodone 5 mg Tablet
2.5 mg PO Q4HPRN PRN (Reason: moderate pain) Qty: 10 0RF
oxycodone 5 mg tablet
5 mg PO Q6H PRN (Reason: Pain) Qty: 8 0RF
oxycodone 5 mg tablet
5 mg PO BID PRN (Reason: Pain) Qty: 5 0RF
oxycodone 5 mg tablet
5 mg PO BID PRN (Reason: Pain) Qty: 10 0RF
tramadol 50 mg tablet
50 mg PO Q8H PRN (Reason: Pain) Qty: 10 0RF
Referrals:
Evita Sales MD [Family Provider, Family Practice]
Aamir Kaur MD [Active, Orthopedics]
Activity Restrictions/Additional Instructions:
Use sling for support. Follow-up with orthopedics. Take pain medicine as needed for severe pain
Interventions
Interventions:
*Risk Screen - Suicide Last Done: 01/08/25 17:05
*General Assessment Last Done: 01/08/25 17:05
*Neglect/Abuse Screening Last Done: 01/08/25 17:05
ED-Musculoskeletal Assessment Last Done: 01/08/25 20:20
ED- Neurological Assessment Last Done: 01/08/25 20:20
ED-Skin Assessment Last Done: 01/08/25 20:20
Discharge Date and Time
Print Language: PORTUGUESE
== END 2025-01-08 20:58 | disposition home or self-care (01) ==
LOC: EMR 17:02
PROVIDERS: EMERGENCY PHYSICIAN Emergency Medicine; FAMILY PHYSICIAN Family Medicine
DX: S52.122A Displaced fracture of head of left radius, initial encounter for closed fracture (principal); S60.211A Contusion of right wrist, initial encounter; M25.561 Pain in right knee; W01.10XA Fall on same level from slipping, tripping and stumbling with subsequent striking against unspecified object, initial encounter; I10 Essential (primary) hypertension
CPT/HCPCS: 99284; 73030; 73080; 73110; 73564

== ENCOUNTER → 2025-02-04 16:47 | Outpatient (REF) | payer MEDICARE, BC, SELFPAY | LOC: PAVMRI 16:47 | PROVIDERS: ATTENDING PHYSICIAN Specialist; FAMILY PHYSICIAN Family Medicine | DX: R53.1 Weakness (principal); G20.A1 Parkinson's disease without dyskinesia, without mention of fluctuations | CPT/HCPCS: 70551 ==